=== PATIENT | male | born 1995 | race Caucasian/White ===

== ENCOUNTER 2023-11-02 16:12 | Emergency (ER) | payer OTHER ==
--- NOTE | 2023-11-02 17:04 | XR ---
EXAMINATION TYPE: XR knee complete LT DATE OF EXAM: 11/02/2023 COMPARISON: None HISTORY: Pain, bruising TECHNIQUE: 3 view left knee FINDINGS: Joint spaces preserved. No acute fracture or dislocation evident. No joint effusion is evid ent. Follow up exams can be performed 7-10 days from acute trauma for continued pain IMPRESSION: 1. No acute osseous abnormality left knee
--- NOTE | 2023-11-02 17:29 | ED ---
Extremity Problem HPI - General Chief complaint: Extremity Problem,Nontraumatic Stated complaint: L Knee Pain Time Seen by Provider: 11/02/23 16:31 Source: patient, RN notes reviewed Mode of arrival: ambulatory Limitations: no limitations - History of Present Illness Initial comments: 28-year-old male with significant past medical history presents emergency department chief complaint of left knee irritation, left elbow irritation and left ankle. Patient states that since this morning he has noticed that the red areas of dry skin irritation over the described areas as above. States that these areas will clear however they returned and they are pruritic. Yesterday evening patient noticed a there is an open area of skin over the left knee. He denies recent falls or injuries, use of new soaps, lotions, detergents. Denies fevers, chills, nausea, vomiting. Has not attempted any at home remedies for the symptoms. - Related Data Allergies Allergy/AdvReac Type Severity Reaction Status Date / Time No Known Allergies Allergy Verified 11/02/23 16:18 Review of Systems ROS Statement: Those systems with pertinent positive or pertinent negative responses have been documented in the HPI. ROS Other: All systems not noted in ROS Statement are negative. Past Medical History Past Medical History: No Reported History History of Any Multi-Drug Resistant Organisms: None Reported Past Surgical History: No Surgical Hx Reported Past Psychological History: No Psychological Hx Reported Smoking Status: Never smoker Past Alcohol Use History: Rare Past Drug Use History: None Reported General Exam Limitations: no limitations General appearance: alert, in no apparent distress Head exam: Present: atraumatic, normocephalic, normal inspection Eye exam: Present: normal appearance, PERRL, EOMI. Absent: scleral icterus, conjunctival injection, periorbital swelling Neck exam: Present: normal inspection. Absent: tenderness, meningismus, lymphadenopathy Respiratory exam: Present: normal lung sounds bilaterally. Absent: respiratory distress, wheezes, rales, rhonchi, stridor Cardiovascular Exam: Present: regular rate, normal rhythm, normal heart sounds. Absent: systolic murmur, diastolic murmur, rubs, gallop, clicks GI/Abdominal exam: Present: soft, normal bowel sounds. Absent: distended, tenderness, guarding, rebound, rigid Extremities exam: Present: normal inspection, full ROM, normal capillary refill. Absent: tenderness, pedal edema, joint swelling, calf tenderness Skin exam: Present: warm, dry, intact, normal color, other (plaque with erythema, excoriations over the left knee, left elbow and left hand interphalangeal joint). Absent: rash Course Vital Signs 11/02/23 11/02/23 16:14 17:47 Temperature 98.2 F 98.1 F Pulse Rate 102 H 96 Respiratory 15 18 Rate Blood Pressure 133/81 136/76 O2 Sat by Pulse 100 100 Oximetry Medical Decision Making - Medical Decision Making Was pt. sent in by a medical professional or institution (, [facility], [facility], urgent care, hospital, or long term...) When possible be specific @ -No Did you speak to anyone other than the patient for history (EMS, parent, family, police, friend...)? What history was obtained from this source @ -No Did you review nursing and triage notes (agree or disagree)? Why? @ -I reviewed and agree with nursing and triage notes Were old charts reviewed (outside hosp., previous admission, EMS record, old EKG, old radiological studies, urgent care reports/EKG's, long term records)? Report findings @ -No old charts were reviewed Differential Diagnosis (chest pain, altered mental status, abdominal pain women, abdominal pain men, vaginal bleeding, weakness, fever, dyspnea, syncope, headache, dizziness, GI bleed, back pain, seizure, CVA, palpatations, mental health, musculoskeletal)? @ -Contact dermatitis, cellulitis, septic arthritis, psoriasis, eczema, this is not all inclusive EKG interpreted by me (3pts min.). @ -None X-rays interpreted by me (1pt min.). @ -X-ray of the left knee no acute osseous abnormality present CT interpreted by me (1pt min.). @ -None done U/S interpreted by me (1pt. min.). @ -None done What testing was considered but not performed or refused? (CT, X-rays, U/S, labs)? Why? @ -None What meds were considered but not given or refused? Why? @ -None Did you discuss the management of the patient with other professionals (professionals i.e. [facility], [facility], lab, RT, psych nurse, certified social workers in health care, manager video, teacher, targeting acquisition officer, case specialist)? Give summary @ -No Was smoking cessation discussed for >3mins.? @ -No Was critical care preformed (if so, how long)? @ -No Were there social determinants of health that impacted care today? How? (Homelessness, low income, unemployed, alcoholism, drug addiction, transportation, low edu. Level, literacy, decrease access to med. care, penitentiary, rehab)? @ -No Was there de-escalation of care discussed even if they declined (Discuss DNR or withdrawal of care, Hospice)? DNR status @ -No What co-morbidities impacted this encounter? (DM, HTN, Smoking, COPD, CAD, Cancer, CVA, ARF, Chemo, Hep., AIDS, mental health diagnosis, sleep apnea, morbid obesity)? @ -None Was patient admitted / discharged? Hospital course, mention meds given and route, prescriptions, significant lab abnormalities, going to OR and other p ertinent info. @ -Discharged. 28-year-old male with skin manifestation. On examination patient vitals are within normal limits he is in no signs of acute distress. There are mildly erythematous plaques over the left knee, left elbow, left knuckle there are no signs of active drainage or purulence. Area is not warm to the touch. Patient has full range of motion of her areas of concern. X-rays negative for acute osseous abnormality. Skin manifestations are consistent with eczema. Patient provided with topical steroid in the emergency department instructed to apply this up to 2 times per day over the affected areas. Recommend that he follows up with his primary care provider next week for further evaluation. All questions answered at bedside and strict return parameters [place] the patient is verbalized understanding. Case discussed with Dr. Ricardo. Undiagnosed new problem with uncertain prognosis? @ -No Drug Therapy requiring intensive monitoring for toxicity (Heparin, Nitro, Insu jason, Cardizem)? @ -No Were any procedures done? @ -No Diagnosis/symptom? @ -Eczema Acute, or Chronic, or Acute on Chronic? @ -Acute Uncomplicated (without systemic symptoms) or Complicated (systemic symptoms)? @ -Uncomplicated Side effects of treatment? @ -No Exacerbation, Progression, or Severe Exacerbation? @ -No Poses a threat to life or bodily function? How? (Chest pain, [place], [place], pneumonia, PE, COPD, DKA, ARF, appy, cholecystitis, CVA, Diverticulitis, Homicidal, Suicidal, threat to staff... and all critical care pts) @ -No Disposition Clinical Impression: Eczema Disposition: HOME SELF-CARE Condition: Good Instructions (If sedation given, give patient instructions): Eczema (ED) Additional Instructions: Return to the emergency department for any new or worsening symptoms. use hydrocortisone cream 2 times per day over affected area. Recommend follow-up with your primary care provider within the next 1 to 2 weeks for further evaluation. Is patient prescribed a controlled substance at d/c from ED?: No Referrals: Martin Talley MD [Primary Care Provider] - 1-2 days Time of Disposition: 17:38
[2023-11-02] MEDS: HYDROCORTISONE 1% CREAM 30 GM TUBE TOPICAL STA (17:45)
[2023-11-02 17:48] VITALS: BP 136/76; PULSE 96; RESP 18; TEMP 98.1
== END 2023-11-02 17:48 | disposition home or self-care (01) ==
LOC: EC 16:12
DX: L30.9 Dermatitis, unspecified (principal)
CPT/HCPCS: 99283